=== PATIENT | female | born 1940 | race Caucasian/White ===

== ENCOUNTER 2017-05-25 20:07 | Inpatient (IN) | payer OTHER, BC ==
--- NOTE | 2017-05-25 20:13 | PDOC ---
History of Present Illness - General Chief Complaint: Injury Stated Complaint: FELL THIS AM INJURING HER WRISTS Time Seen by Provider: 05/25/17 20:12 Past History - Travel Traveled outside of the country in the last 30 days: No Close contact w/someone who was outside of country & ill: No - Past Medical History Allergies/Adverse Reactions: Allergies Allergy/AdvReac Type Severity Reaction Status Date / Time ciprofloxacin Allergy Intermediate Rash Verified 05/25/17 20:21 clarithromycin [From Biaxin] Allergy Intermediate Itching Verified 05/25/17 20: 21 Penicillins Allergy Intermediate Swelling Verified 05/25/17 20:21 Sulfa (Sulfonamide Allergy Intermediate Itching Verified 05/25/17 20:21 Antibiotics) pseudoephedrine Allergy Mild Itching Verified 05/25/17 20:21 Home Medications: Ambulatory Orders Digoxin [Lanoxin -] 0.125 mg PO DAILY 05/25/17 Duloxetine HCl 30 mg PO BID 05/25/17 Furosemide [Lasix -] 40 mg PO DAILY 05/25/17 Gabapentin 100 mg PO TID 05/25/17 Metoprolol Tartrate 100 mg PO DAILY 05/25/17 Oxybutynin Chloride [Ditropan -] 5 mg PO DAILY 05/25/17 Rosuvastatin Calcium 10 mg PO DAILY 05/25/17 Tobramycin 0.3% Ophth Soln [Tobrex *Ophthalmic Solution*] 1 - 2 drop DAILY 05/25 Valacyclovir HCl [Valtrex -] 1 gm PO TID 05/25/17 Warfarin Na [Coumadin] 5 mg PO DAILY 05/25/17 Anemia: No Asthma: No Cancer: No Cardiac Disorders: Yes CVA: No COPD: No CHF: Yes Dementia: No Diabetes: No GI Disorders: No Disorders: Yes (URINARY INCONTINENCE) HTN: Yes Hypercholesterolemia: Yes Liver Disease: No Seizures: No Thyroid Disease: No - Surgical History Abdominal Surgery: Yes (ABDOMINAL HERNIA REPAIR X 4) Appendectomy: No Cardiac Surgery: No Cholecystectomy: Yes Lung Surgery: No Neurologic Surgery: No Orthopedic Surgery: Yes (RIGHT HIP AND KNEE REPLACEMENTS/RIGHT ANKLE FX WITH HARDWARE) - Immunization History Immunization Up to Date: Yes - Suicide/Smoking/Psychosocial Hx Smoking Status: Yes Smoking History: Former smoker Have you smoked in the past 12 months: No Number of Cigarettes Smoked Daily: 0 If you are a former smoker, when did you quit?: 43 yrs ago Hx Alcohol Use: No Drug/Substance Use Hx: No Substance Use Type: None Hx Substance Use Treatment: No Review of Systems - Review of Systems Comments:: 05/26/17 03:29 Pt fell out of bed today -weak and arthritic. Constitutional: No: Symptoms Reported, See HPI, Chills, Diaphoresis, Fever, Loss of Appetite, Malaise, Night Sweats, Weakness, Weight Stable, Unintentional Wgt. Loss, Unexplained wgt Loss, Other HEENTM: Yes: Recent change in vision Respiratory: No: Symptoms reported, See HPI, Cough, Orthopnea, Shortness of Breath, SOB with Exertion, SOB at Rest, Stridor, Wheezing, Productive cough, Hemoptysis, Other Cardiac (ROS): Yes: Irregular Heart Rate ABD/GI: Yes: Poor Appetite. No: Symptoms Reported, See HPI, Abdominal Distended , Abd. Pain w/ defecation, Blood Streaked Bowels, Constipated, Diarrhea, Difficulty Swallowing, Nausea, Poor Fluid Intake, Rectal Bleeding, Vomiting, Indigestion, Abdominal cramping, Tarry Stools, Other : Yes: Urgency. 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 No: Apparent Distress, Disheveled HEENT: positive: EOMI, VIC, Normal ENT Inspection Neck: positive: Normal Thyroid, Supple Respiratory/Chest: positive: Lungs Clear, Normal Breath Sounds. negative: Respiratory Distress Cardiovascular: positive: Regular Rate, S1, S2, Irregularly Irregular Gastrointestinal/Abdominal: positive: Normal Bowel Sounds, Soft Extremity: positive: Normal Inspection, Tender, Inflammation (pt has arthritis in her wrists and hands and she is in destress with movement of wrists -but no redness and no swelling or deformity). negative: Normal Range of Motion Integumentary: positive: Normal Color, Dry, Warm Neurologic: positive: Fully Oriented, Alert, Normal Response, Motor Strength 10/04 ED Treatment Course - LABORATORY CBC & Chemistry Diagram: 05/25/17 21:10 05/25/17 23:30 Medical Decision Making - Medical Decision Making 05/25/17 21:03 BIlateral wrist XRAYS: no fracture seen 05/25/17 22:13 Patient Name: MARVIN KILLIAN THIS IS A PRELIMINARY REPORT FROM [facility] DATE OF SERVICE: 2017-05-25 20:47:18 IMAGES: 248 EXAM: CT cervical spine without contrast HISTORY: Status post fall. COMPARISON: None. FINDINGS: 1. Visualization of detail in portions of the spine is significantly limited by artifact created by large body habitus. 2. There is straightening of the normal lordotic curve of the cervical spine. The vertebral heights are maintained. There is loss of height of the C4-C5, C5-C6 and C6-C7 discs. There is multiple level degenerative facet change. Visualization of detail of the contents of the cervical canal is limited by artifact. There is no definite evidence of fracture and no evidence of subluxation. However, fractures of C6 and C7 could be missed due to artifact. THIS DOCUMENT HAS BEEN ELECTRONICALLY SIGNED Patient Name: MARVIN KILLIAN THIS IS A PRELIMINARY REPORT FROM [facility] DATE OF SERVICE: 2017-05-25 20:50:57 IMAGES: 90 EXAM: CT head without contrast HISTORY: Status post fall. Hit head. COMPARISON: None. FINDINGS: 1. There is no CT evidence of an acute intracranial process and no evidence of intracranial hemorrhage or mass effect. White matter changes most likely represent areas of chronic post ischemic demyelination/small vessel disease. 2. Ventricular size is concordant with the degree of atrophy. 3. The visualized portions of the orbits, paranasal and mastoid sinuses are unremarkable. 4. There is no evidence of fracture. 05/25/17 22:48 Pt has a UTI Also both cemistry samples sent to the lab were hemolyzed; I spoke to the biology laboratory assistant, and the K+ of 6.3 is a hemolyzed result. We will repeat it again. Pt has an elevated WBC count. 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
[2017-05-25 21:45] LABS: BASO % 2.7 % (0-2.0); EOS % 0.6 % (0-4.5); MCH 29.2 pg (25.7-33.7); MCHC 33.1 g/dl (32.0-36.0); MEAN CELL VOLUME 88.3 fl (80-96); MEAN PLT VOLUME 10.8 fl (7.5-11.1); NEUT % 79.5 % (42.8-82.8); PLATELET COUNT 227 K/MM3 (134-434); RDW 15.6 % (11.6-15.6); WHITE BLOOD COUNT 14.4 K/mm3 (4.0-10.8)
[2017-05-25 21:52] LABS: NEUT # 11.5 # (42.8-82.8)
[2017-05-25 21:53] LABS: BASO # 0.4 # (0.1-1); EOS # 0.1 #; LYMPH # 1.8 # (8-40); MONO # 0.6 #
[2017-05-25] MEDS ORDERED: ONDANSETRON 4 MG/2 ML VIAL IVPB ONE (22:09)
[2017-05-25] MEDS ORDERED: ONDANSETRON 4 MG/2 ML VIAL ONE (22:10)
[2017-05-25] MEDS ORDERED: SODIUM CHLORIDE 0.9% 500 ML INFUS.BAG IV ONE (22:21)
[2017-05-25 22:36] LABS: PH,URINE 5.5 (4.5-8); URINE BILIRUBIN Negative (NEGATIVE); URINE GLUCOSE (UA) Negative (NEGATIVE); URINE KETONE Negative (NEGATIVE); URINE NITRITE Positive (NEGATIVE); URINE PROTEIN Negative (NEGATIVE)
[2017-05-25 22:37] LABS: URINE APPEARANCE SL CLOUDY; URINE BLOOD 1+ (NEGATIVE); URINE COLOR YELLOW; URINE LEUK ESTERASE 3+ (NEGATIVE)
[2017-05-25 22:38] LABS: ALBUMIN 3.2 g/dl (3.5-5.0); ALK PHOS 101 U/L (32-92); ANION GAP 8 (8-16); BILIRUBIN,TOTAL 1.7 mg/dl (0.2-1.0); CALCIUM 8.5 mg/dl (8.4-10.2); CO2 25 mmol/L (22-28); CPK 120 IU/L (26-192); GLUCOSE,RANDOM 180 mg/dl (74-106); SGOT/AST 56 U/L (10-42); SGPT/ALT 21 U/L (10-40); TOT PROT 6.5 g/dl (6.4-8.3)
[2017-05-25] MEDS ORDERED: GENTAMICIN 80 MG PREMIXED IVPB 80 MG/100 ML BAG IVPB ONE (22:40)
[2017-05-25 22:41] LABS: INR 3.25 (0.82-1.09); PROTHROMBIN TIME (PATIENT) 35.6 SEC (10.2-13.0)
[2017-05-25 22:52] LABS: TROPONIN I (DFP) 0.03 ng/ml (0.03-0.50)
[2017-05-25 23:08] LABS: URINE BACTERIA MODERATE /hpf (NEGATIVE); URINE WBC 40-60 (0-5)
[2017-05-25 23:53] LABS: ALBUMIN 3.2 g/dl (3.5-5.0); ALK PHOS 97 U/L (32-92); ANION GAP 7 (8-16); BILIRUBIN,TOTAL 0.6 mg/dl (0.2-1.0); CALCIUM 8.2 mg/dl (8.4-10.2); CO2 26 mmol/L (22-28); CREATININE 0.8 mg/dl (0.6-1.3); GLUCOSE,RANDOM 175 mg/dl (74-106); SGOT/AST 20 U/L (10-42); SGPT/ALT 15 U/L (10-40); TOT PROT 6.4 g/dl (6.4-8.3)
[2017-05-26 02:41] VITALS: BMI 33.8
[2017-05-26] MEDS: HEPARIN NA (PORCINE) 5,000 UNITS/ML 1ML VIAL SQ SCH ×2 (06:43→18:21)
[2017-05-26] MEDS ORDERED: PT OWN MED DRAWER 7, Y5N ONE ×2 (09:32→16:08)
[2017-05-26 10:02] LABS: MCH 29.5 pg (25.7-33.7); MCHC 32.9 g/dl (32.0-36.0); MEAN CELL VOLUME 89.7 fl (80-96); PLATELET COUNT 175 K/MM3 (134-434); RDW 15.7 % (11.6-15.6)
[2017-05-26 10:50] LABS: ANION GAP 5 (8-16); CO2 30 mmol/L (22-28); CREATININE 0.8 mg/dl (0.6-1.3); GLUCOSE,RANDOM 150 mg/dl (74-106)
[2017-05-26] MEDS: ERTAPENEM SODIUM 1 GM in SODIUM CHLORIDE 50 ML IVPB SCH (12:39)
--- NOTE | 2017-05-26 13:15 | HP ---
CHIEF COMPLAINT: Fell out of bed and hurt both wrists. PCP: Dr. Bellamy HISTORY OF PRESENT ILLNESS: 77 year-old female with a PMH significant for HTN, HLD, systolic HF, pulmonary HTN, atrial fibrillation on coumadin, aortic stenosis s/p TAVR, OA, s/p bilateral knee replacements and right hip replacement, and morbid obesity. Patient presented to the ED after having fallen out of bed. She states it was a mechanical fall, she did not pass out of LOC before or after. She does not know if her legs gave way. She hit her head against a wall and she landed on both wrists. Patient has no other complaints. She denies recent illness. She denies dysuria, frequency, urgency. ER course was notable for: (1) INR 3.25 (2) All imaging negative for acute process (3) UA 40-60 WBCs Recent Travel: No PAST MEDICAL HISTORY: Hypertension Heart failure Pulmonary hypertension Atrial fibrillation Aortic stenosis Osteoarthritis Sleep apnea Fatty liver Depression Degenerative disc disease/chronic low back pain Morbid obesity PAST SURGICAL HISTORY: TAVR Cholecystectomy Partial bowel resection Umbilical hernia repair ISABELLA Bilateral knee replacement Right hip replacement ORIF right ankle Cataract surgery Social History: Smoking: former smoker Alcohol: no Drugs: no Family History: Allergies ciprofloxacin Allergy (Intermediate, Verified 05/25/17 20:21) Rash clarithromycin [From Biaxin] Allergy (Intermediate, Verified 05/25/17 20:21) Itching Penicillins Allergy (Intermediate, Verified 05/25/17 20:21) Swelling RASH AND SWELLING Sulfa (Sulfonamide Antibiotics) Allergy (Intermediate, Verified 05/25/17 20:21) Itching pseudoephedrine Allergy (Mild, Verified 05/25/17 20:21) Itching HOME MEDICATIONS: Home Medications Medication Instructions Recorded Digoxin [Lanoxin -] 0.125 mg PO DAILY 05/25/17 Duloxetine HCl 30 mg PO BID 05/25/17 Furosemide [Lasix -] 40 mg PO DAILY 05/25/17 Gabapentin 100 mg PO TID 05/25/17 Metoprolol Tartrate 100 mg PO DAILY 05/25/17 Oxybutynin Chloride [Ditropan -] 5 mg PO DAILY 05/25/17 Rosuvastatin Calcium 10 mg PO DAILY 05/25/17 Tobramycin 0.3% Ophth Soln [Tobrex 1 - 2 drop DAILY 05/25/17 *Ophthalmic Solution*] Valacyclovir HCl [Valtrex -] 1 gm PO TID 05/25/17 Warfarin Na [Coumadin] 5 mg PO DAILY 05/25/17 REVIEW OF SYSTEMS Negative ROS. PHYSICAL EXAMINATION Vital Signs Temperature 98.8 F 05/26/17 14:25 Pulse Rate 80 05/26/17 16:13 Respiratory Rate 18 05/26/17 14:25 Blood Pressure 145/80 05/26/17 14:25 O2 Sat by Pulse Oximetry (%) 96 05/26/17 14:26 GENERAL: Awake, alert, and fully oriented, in no acute distress. HEAD: Normal with no signs of trauma. EYES: Crusted lesion medial canthus right eye LUNGS: Breath sounds equal, clear to auscultation bilaterally. No wheezes, and no crackles. No accessory muscle use. HEART: Irregular, S1 and S2 ABDOMEN: Soft, nontender, not distended, normoactive bowel sounds, no guarding, no rebound, no masses. MUSCULOSKELETAL: Normal range of motion at all joints. No bony deformities or tenderness. No CVA tenderness. UPPER EXTREMITIES: 2+ pulses, warm, well-perfused. No cyanosis. No clubbing. Trace upper extremity edema. Bilateral wrist tenderness with rotation. LOWER EXTREMITIES: 2+ pulses, warm, well-perfused. No calf tenderness. Trace bilateral edema. NEUROLOGICAL: Cranial nerves II-XII intact. Normal speech. Laboratory Results - last 24 hr 05/25/17 05/25/17 05/25/17 20:36 20:36 20:36 WBC Corrected WBC (auto) RBC Hgb Hct MCV MCH MCHC RDW Plt Count MPV Neutrophils % Lymphocytes % Monocytes % Eosinophils % Basophils % Nucleated RBC % Platelet Estimate Platelet Comment PT with INR INR PTT (Actin FS) Cancelled Sodium Cancelled Potassium Cancelled Chloride Cancelled Carbon Dioxide Cancelled Anion Gap Cancelled BUN Cancelled Creatinine Cancelled Creat Clearance w eGFR Cancelled Random Glucose Cancelled Calcium Cancelled Total Bilirubin Cancelled AST Cancelled ALT Cancelled Alkaline Phosphatase Cancelled Creatine Kinase Cancelled Troponin I Cancelled Total Protein Cancelled Albumin Cancelled Urine Color Urine Appearance Urine pH Ur Specific [place] Urine Protein Urine Glucose (UA) Urine Ketones Urine Blood Urine Nitrite Urine Bilirubin Urine Urobilinogen Ur Leukocyte Esterase Urine RBC Urine WBC Ur Epithelial Cells Amorphous Urates Urine Bacteria 05/25/17 05/25/17 05/25/17 20:36 21:10 21:10 WBC 14.4 H D Corrected WBC (auto) RBC 4.97 Hgb 14.5 Hct 43.8 MCV 88.3 MCH 29.2 MCHC 33.1 RDW 15.6 Plt Count 227 D MPV 10.8 Neutrophils % 79.5 Lymphocytes % 12.7 D Monocytes % 4.5 Eosinophils % 0.6 Basophils % 2.7 H D Nucleated RBC % Platelet Estimate Platelet Comment PT with INR Cancelled INR Cancelled PTT (Actin FS) Sodium Potassium Chloride Carbon Dioxide Anion Gap BUN Creatinine Creat Clearance w eGFR Random Glucose Calcium Total Bilirubin AST ALT Alkaline Phosphatase Creatine Kinase Troponin I Total Protein Albumin Urine Color Yellow Urine Appearance Sl cloudy Urine pH 5.5 Ur Specific [place] 1.015 Urine Protein Negative Urine Glucose (UA) Negative Urine Ketones Negative Urine Blood 1+ H Urine Nitrite Positive Urine Bilirubin Negative Urine Urobilinogen 1.0 Ur Leukocyte Esterase 3+ H Urine RBC 5-10 Urine WBC 40-60 Ur Epithelial Cells Moderate Amorphous Urates Few Urine Bacteria Moderate 05/25/17 05/25/17 05/25/17 22:14 22:14 22:14 WBC Cancelled Corrected WBC (auto) Cancelled RBC Cancelled Hgb Cancelled Hct Cancelled MCV Cancelled MCH Cancelled MCHC Cancelled RDW Cancelled Plt Count Cancelled MPV Cancelled Neutrophils % Cancelled Lymphocytes % Cancelled Monocytes % Cancelled Eosinophils % Cancelled Basophils % Cancelled Nucleated RBC % Cancelled Platelet Estimate Cancelled Platelet Comment Cancelled PT with INR 35.6 H INR 3.25 H D PTT (Actin FS) 41.0 H Sodium 135 L Potassium 6.3 H* D Chloride 102 Carbon Dioxide 25 Anion Gap 8 BUN 22 H D Creatinine 1.0 Creat Clearance w eGFR 53.62 Random Glucose 180 H D Calcium 8.5 Total Bilirubin 1.7 H D AST 56 H D ALT 21 Alkaline Phosphatase 101 H Creatine Kinase 120 Troponin I 0.03 Total Protein 6.5 Albumin 3.2 L Urine Color Urine Appearance Urine pH Ur Specific [place] Urine Protein Urine Glucose (UA) Urine Ketones Urine Blood Urine Nitrite Urine Bilirubin Urine Urobilinogen Ur Leukocyte Esterase Urine RBC Urine WBC Ur Epithelial Cells Amorphous Urates Urine Bacteria 05/25/17 05/26/17 05/26/17 23:30 06:00 06:00 WBC 10.0 D Corrected WBC (auto) RBC 4.08 Hgb 12.1 D Hct 36.6 D MCV 89.7 MCH 29.5 MCHC 32.9 RDW 15.7 H Plt Count 175 D MPV 10.0 Neutrophils % Lymphocytes % Monocytes % Eosinophils % Basophils % Nucleated RBC % Platelet Estimate Platelet Comment PT with INR INR PTT (Actin FS) Sodium 137 Cancelled Potassium 4.0 D Cancelled Chloride 104 Cancelled Carbon Dioxide 26 Cancelled Anion Gap 7 L Cancelled BUN 21 H Cancelled Creatinine 0.8 Cancelled Creat Clearance w eGFR > 60 Random Glucose 175 H Cancelled Calcium 8.2 L Cancelled Total Bilirubin 0.6 D AST 20 D ALT 15 D Alkaline Phosphatase 97 H Creatine Kinase Troponin I Total Protein 6.4 Albumin 3.2 L Urine Color Urine Appearance Urine pH Ur Specific [place] Urine Protein Urine Glucose (UA) Urine Ketones Urine Blood Urine Nitrite Urine Bilirubin Urine Urobilinogen Ur Leukocyte Esterase Urine RBC Urine WBC Ur Epithelial Cells Amorphous Urates Urine Bacteria 05/26/17 10:25 WBC Corrected WBC (auto) RBC Hgb Hct MCV MCH MCHC RDW Plt Count MPV Neutrophils % Lymphocytes % Monocytes % Eosinophils % Basophils % Nucleated RBC % Platelet Estimate Platelet Comment PT with INR INR PTT (Actin FS) Sodium 137 Potassium 3.8 Chloride 102 Carbon Dioxide 30 H Anion Gap 5 L BUN 19 H Creatinine 0.8 Creat Clearance w eGFR Random Glucose 150 H Calcium 8.0 L Total Bilirubin AST ALT Alkaline Phosphatase Creatine Kinase Troponin I Total Protein Albumin Urine Color Urine Appearance Urine pH Ur Specific [place] Urine Protein Urine Glucose (UA) Urine Ketones Urine Blood Urine Nitrite Urine Bilirubin Urine Urobilinogen Ur Leukocyte Esterase Urine RBC Urine WBC Ur Epithelial Cells Amorphous Urates Urine Bacteria Current Medications Generic Name Dose Route Start Last Admin Trade Name Vinny PRN Reason Stop Dose Admin Digoxin 0.125 mg 05/26/17 15:00 05/26/17 16:13 Lanoxin - PO 0.125 mg DAILY JUWAN Administration Duloxetine HCl 30 mg 05/26/17 22:00 Cymbalta - PO BID JUWAN Furosemide 40 mg 05/26/17 15:00 05/26/17 16:13 Lasix - PO 40 mg DAILY JUWAN Administration Gabapentin 100 mg 05/26/17 15:00 05/26/17 16:14 Neurontin - PO 100 mg TID JUWAN Administration Ertapenem 1 gm/ Sodium 50 mls @ 50 mls/hr 05/26/17 12:00 05/26/17 12:39 Chloride IVPB 50 mls/hr DAILY JUWAN Administration Protocol Metoprolol Tartrate 100 mg 05/26/17 17:15 05/26/17 17:37 Lopressor - PO 100 mg DAILY JUWAN Administration Oxybutynin Chloride 5 mg 05/27/17 10:00 Ditropan - PO DAILY JUWAN Rosuvastatin Calcium 10 mg 05/27/17 10:00 Crestor - PO DAILY JUWAN Tobramycin Sulfate 1 drop 05/27/17 10:00 Tobrex Ophthalmic Solution - OU DAILY JUWAN Valacyclovir HCl 1,000 mg 05/26/17 15:00 05/26/17 16:14 Valtrex - PO 1,000 mg TID JUWAN Administration ASSESSMENT/PLAN: 77 year-old female with a PMH significant for HTN, HF, pulmonary HTN, atrial fibrillation on coumadin, aortic stenosis s/p TAVR, OA, s/p bilateral knee replacements and right hip replacement, and morbid obesity. Mechanical fall from bed to floor --negative imaging --soft tissue wrist injuries Urinary tract infection --pyuria; afebrile, +leukocytosis --h/o E.coli ESBL UTI 11/2015 --per ID, start ertapenem Herpes zoster --being treated for shingles with right eye, right ear distribution --continue valacyclovir TID Systolic heart failure Pulmonary hypertension Aortic stenosis s/p TAVR --Echo 11/22/15: EF 20-25%; normal RV; moderate LAE; 1+ MR --continue home dose PO Lasix Atrial fibrillation --rate well-controlled in 80s, continue metoprolol and digoxin; check dig level --INR supratherapeutic on admission; hold coumadin; recheck INR in am Hypertension --BP well-controlled --contiue metoprolol Hyperlipidemia --continue statin DVT prophylaxis: on coumadin, INR supratherapeutic Physical therapy evaluation. Dispo: continues to require inpatient care. Full Code. Visit type - Emergency Visit Emergency Visit: Yes ED Registration Date: 05/25/17 Care time: The patient presented to the Emergency Department on the above date and was hospitalized for further evaluation of their emergent condition. - New Patient This patient is new to me today: Yes Date on this admission: 05/26/17 - Critical Care Critical Care patient: No
--- NOTE | 2017-05-26 14:32 | PN ---
Progress Note (short form) - Note Progress Note: ID consult dictated imp/reccd 77 year old female admitted s/p fall she has a pmh of TAVR in 2014 for , OA with bilateral knee replacements and right hip replacement uses a walker at home fell trying to get from bed to walker no LOC quite sedentary c/o generalized weakness no fevers or chills history of ecoli esbl uti in 2016 treated with ertapenem on admission noted to have wbc of 14.6 and pyuria given leukocytosis and generalized weakness with fall will treat for uti with ertapenem contact isolation multiple antibiotic allergies s/p fall d/w hospitalist Problem List - Problems (1) Fall Code(s): W19.XXXA - UNSPECIFIED FALL, INITIAL ENCOUNTER (2) UTI (urinary tract infection) Code(s): N39.0 - URINARY TRACT INFECTION, SITE NOT SPECIFIED (3) Allergy to multiple antibiotics Code(s): Z88.1 - ALLERGY STATUS TO OTHER ANTIBIOTIC AGENTS STATUS (4) History of ESBL E. coli infection Code(s): Z86.19 - PERSONAL HISTORY OF OTHER INFECTIOUS AND PARASITIC DISEASES
[2017-05-26] MEDS ORDERED: PATIENT'S OWN MEDICATION (NON-FORMULARY) (Metoprolol Tartrate [Metoprolol Tartrate] 100 MG PO SCH (15:00)
--- NOTE | 2017-05-26 15:11 | CONS ---
DATE OF CONSULTATION: REQUESTING PHYSICIAN: Hospitalist service HISTORY: This is a 77-year-old woman who was admitted to [facility] after she had a fall at home. She has a past medical history of a TAVR in 2014 for aortic stenosis, history of osteoarthritis. She is quite sedentary and uses a walker for ambulation. She was trying to get from her bed to the walker she reports, and she sustained a fall while doing this. She denies any loss of consciousness. She reports that she has been feeling quite weak and arthritic lately. She denies any fevers or chills. No nausea, vomiting, diarrhea, or dysuria. Upon arrival in the ER, she had multiple x-rays especially of her hands as she stated her wrists were painful. She was noted as well to have a white count of 14.4 and pyuria and was given a dose of gentamicin as she has multiple antibiotic allergies. I am asked to see her for further recommendations. She is current resting comfortably out of bed in a chair. PAST MEDICAL HISTORY: Notable for history of coronary artery disease, CHF, urinary incontinence, hypertension, hypercholesterolemia, aortic stenosis. PAST SURGICAL HISTORY: Notable for TAVR in 2014. She has had abdominal hernia repair x4. Cholecystectomy. She has had a hysterectomy. Bilateral total knee replacements. Right hip replacement. Right ankle fracture. SOCIAL HISTORY: She is a former smoker. Quit 43 years ago. She is followed by as outlined above. She lives at home. She has an aide, and family members are actively involved in her care. ALLERGIES: She is allergic to multiple medications including CIPROFLOXACIN, CLARITHROMYCIN, PENICILLIN, SULFA, and SUDAFED. Last admission in 2016 she tolerated both ceftriaxone and ertapenem. She has a history of an Escherichia coli ESBL UTI during that admission. FAMILY HISTORY: Notable for [place] in her mother and brother. REVIEW OF SYSTEMS: As per HPI. She complains of arthritic pain. Her sister reports she is quite sedentary, and she has been very weak. PHYSICAL EXAMINATION: Vital Signs: Her temperature is 98.8, pulse of 99, blood pressure 145/80, respiratory rate 18. She is saturating 96% on 2 L. She weighs 216 pounds. HEENT: She is normocephalic. Her eyes are anicteric. Neck: Supple. Lungs: Clear to auscultation. Heart: Regular rate and rhythm. Abdomen: Soft and nontender. She has no CVA or flank tenderness. Extremities: Trace pretibial edema. She has bilateral well-healed total knee replacement scars. LABORATORY DATA: Her labs are notable for an admission white count of 14.4, this morning is 10,000, hemoglobin 12.1, platelets 175. BUN 21 and creatinine 0.8 on admission. This morning BUN 19 and creatinine 0.8. LFTs on admission were notable for a total bilirubin 1.7, alkaline phosphatase 101, which on repeat were improved. Urinalysis has 3+ leukocyte esterase with 40-60 white cells. Cultures have been sent and are pending. In summary, this is a 77-year-old woman admitted status post fall with generalized weakness, leukocytosis, and pyuria. Would treat for UTI with ertapenem at this time given her prior history of Escherichia coli ESBL UTI as well as antibiotic allergies. I would maintain her on contact isolation. Given her multiple antibiotic allergies, of note, she tolerates cephalosporins and Carbapenems, so her current ertapenem should be appropriate until culture results are back. The case was discussed with the hospitalist. BATSHEVA EWING M.D. [id number]
[2017-05-26] MEDS ORDERED: SODIUM CHLORIDE 1,000 ML IV SCH (15:30)
[2017-05-26] MEDS ORDERED: valACYclovir HCL 500 MG TABLET (FP) ONE ×2 (16:08→21:40)
[2017-05-26] MEDS: DIGOXIN 0.125 MG TABLET (FP) PO SCH (16:13)
[2017-05-26] MEDS: FUROSEMIDE 40 MG TABLET (FP) PO SCH (16:13)
[2017-05-26] MEDS: valACYclovir HCL 1000 MG TABLET PO SCH ×2 (16:14→21:46)
[2017-05-26] MEDS: GABAPENTIN 100 MG CAPSULE (FP) PO SCH ×2 (16:14→21:45)
[2017-05-26] MEDS: METOPROLOL TARTRATE 50 MG TABLET (FP) PO SCH (17:37)
[2017-05-26] MEDS: DULoxetine HCL 30 MG CAPSULE.DR (FP) PO SCH (21:45)
[2017-05-27] MEDS ORDERED: valACYclovir HCL 500 MG TABLET (FP) ONE (06:19)
[2017-05-27] MEDS: GABAPENTIN 100 MG CAPSULE (FP) PO SCH ×3 (06:27→21:31)
[2017-05-27] MEDS: valACYclovir HCL 1000 MG TABLET PO SCH (06:27)
[2017-05-27 08:32] LABS: INR 1.63 (0.82-1.09); PROTHROMBIN TIME (PATIENT) 18.1 SEC (10.2-13.0)
[2017-05-27 08:49] LABS: MCH 30.1 pg (25.7-33.7); MCHC 33.7 g/dl (32.0-36.0); MEAN CELL VOLUME 89.3 fl (80-96); MEAN PLT VOLUME 10.3 fl (7.5-11.1); RDW 15.9 % (11.6-15.6)
--- NOTE | 2017-05-27 08:54 | PN ---
Physical Exam: SUBJECTIVE: Patient seen and examined, sitting in bedside chair, denies any tactile fevers, reports generalized fatigue. OBJECTIVE: patient is a obese, 77 year-old female with a PMH significant for HTN, HLD, systolic HF, pulmonary HTN, atrial fibrillation (coumadin), aortic stenosis s/p TAVR, and OA. Patient was admitted from the emergency department s /p mechanical fall and UTI Vital Signs Period Temp Pulse Resp BP Sys/Cabral Pulse Ox Last 24 Hr 97.6 F-98.8 F 80-99 18-20 136-153/56-94 95-100 GENERAL: The patient is awake, alert, and fully oriented, in no acute distress. HEAD: dried vesicles to medical canthus of right eye, Normal with no signs of trauma. EYES: PERRL, extraocular movements intact, sclera anicteric, conjunctiva clear. No ptosis. ENT: Ears normal, nares patent, oropharynx clear without exudates, moist mucous membranes. NECK: Trachea midline, full range of motion, supple. LUNGS: Breath sounds equal, clear to auscultation bilaterally, no wheezes, no crackles, no accessory muscle use. HEART: irregular rate and rhythm, S1, S2, 2/6 sysolic murmur, no rub or gallop. ABDOMEN: Soft, nontender, nondistended, normoactive bowel sounds, no guarding, no rebound, no hepatosplenomegaly, no masses. EXTREMITIES: 2+ pulses, warm, well-perfused, +1 trace billateral lower extremity edema, with venous stasis changes bilaterally. NEUROLOGICAL: Cranial nerves II through XII grossly intact. Normal speech, gait not observed. PSYCH: Normal mood, normal affect. SKIN: Warm, dry, normal turgor, no rashes or lesions noted Laboratory Results - last 24 hr CBC WBC 14.3 K/mm3 (4.0-10.8) H D 05/27/17 07:00 Corrected WBC (auto) Cancelled 05/25/17 22:14 RBC 4.07 M/mm3 (3.60-5.2) 05/27/17 07:00 Hgb 12.2 GM/dl (10.7-15.3) 05/27/17 07:00 Hct 36.3 % (32.4-45.2) 05/27/17 07:00 MCV 89.3 fl (80-96) 05/27/17 07:00 MCH 30.1 pg (25.7-33.7) 05/27/17 07:00 MCHC 33.7 g/dl (32.0-36.0) 05/27/17 07:00 RDW 15.9 % (11.6-15.6) H 05/27/17 07:00 Plt Count 175 K/MM3 (134-434) D 05/26/17 06:00 MPV 10.3 fl (7.5-11.1) 05/27/17 07:00 Neutrophils % No Result Required. 05/27/17 07:00 Lymphocytes % No Result Required. 05/27/17 07:00 Monocytes % 4.5 % (3.8-10.2) 05/25/17 21:10 Eosinophils % 0.6 % (0-4.5) 05/25/17 21:10 Basophils % 2.7 % (0-2.0) H D 05/25/17 21:10 Nucleated RBC % Cancelled 05/25/17 22:14 Platelet Estimate Cancelled 05/25/17 22:14 Platelet Comment Cancelled 05/25/17 22:14 CMP Sodium 137 mmol/L (136-145) 05/27/17 07:00 Potassium 4.2 mmol/L (3.5-5.1) 05/27/17 07:00 Chloride 102 mmol/L (98-107) 05/27/17 07:00 Carbon Dioxide 30 mmol/L (22-28) H 05/27/17 07:00 Anion Gap 5 (8-16) L 05/27/17 07:00 BUN 16 mg/dl (7-18) 05/27/17 07:00 Creatinine 0.8 mg/dl (0.6-1.3) 05/27/17 07:00 Creat Clearance w eGFR > 60 (>60) 05/27/17 07:00 Random Glucose 163 mg/dl (74-106) H 05/27/17 07:00 Calcium 8.1 mg/dl (8.4-10.2) L 05/27/17 07:00 Magnesium 1.9 mg/dL (1.8-2.4) D 05/27/17 07:00 Total Bilirubin 0.9 mg/dl (0.2-1.0) D 05/27/17 07:00 AST 18 U/L (10-42) 05/27/17 07:00 ALT 19 U/L (10-40) D 05/27/17 07:00 Alkaline Phosphatase 85 U/L (32-92) 05/27/17 07:00 Creatine Kinase 120 IU/L (26-192) 05/25/17 22:14 Troponin I 0.03 ng/ml (0.03-0.50) 05/25/17 22:14 Total Protein 5.7 g/dl (6.4-8.3) L 05/27/17 07:00 Albumin 2.7 g/dl (3.5-5.0) L 05/27/17 07:00 Active Medications Generic Name Dose Route Start Last Admin Trade Name Freq PRN Reason Stop Dose Admin Digoxin 0.125 mg 05/26/17 15:00 05/26/17 16:13 Lanoxin - PO 0.125 mg DAILY JUWAN Administration Duloxetine HCl 30 mg 05/26/17 22:00 05/26/17 21:45 Cymbalta - PO 30 mg BID JUWAN Administration Furosemide 40 mg 05/26/17 15:00 05/26/17 16:13 Lasix - PO 40 mg DAILY JUWAN Administration Gabapentin 100 mg 05/26/17 15:00 05/27/17 06:27 Neurontin - PO 100 mg TID JUWAN Administration Ertapenem 1 gm/ Sodium 50 mls @ 50 mls/hr 05/26/17 12:00 05/26/17 12:39 Chloride IVPB 50 mls/hr DAILY JUWAN Administration Protocol Metoprolol Tartrate 100 mg 05/26/17 17:15 05/26/17 17:37 Lopressor - PO 100 mg DAILY JUWAN Administration Oxybutynin Chloride 5 mg 05/27/17 10:00 Ditropan - PO DAILY JUWAN Rosuvastatin Calcium 10 mg 05/27/17 10:00 Crestor - PO DAILY JUWAN Tobramycin Sulfate 1 drop 05/27/17 10:00 Tobrex Ophthalmic Solution - OU DAILY JUWAN Valacyclovir HCl 1,000 mg 05/27/17 14:00 Valtrex - PO TID JUWAN Microbiology 05/25/17 20:55 Urine - Urine - Catheterized Urine Culture - Preliminary Lactose Fermenting Neg Bacilli 05/26/17 05:00 Blood - Peripheral Venous Blood Culture - Preliminary NO GROWTH OBTAINED AFTER 24 HOURS, INCUBATION TO CONTINUE FOR 4 DAYS. 05/26/17 05:00 Blood - Peripheral Venous Blood Culture - Preliminary NO GROWTH OBTAINED AFTER 24 HOURS, INCUBATION TO CONTINUE FOR 4 DAYS. IMAGING chest xray: no acute pathology head ct 05/25: moderate carebral atophy with periventricular changes left wrist: no acute pathology right wrist:no acute pathology cervical spine ct: wedging, no gross fracture ASSESSMENT/PLAN: 1) MS: Mechanical fall from bed to floor - xrays reviwed no acute pathology - repeat head ct today, no acute pathology. 2) Urinary tract infection - pt is afebrile, leukocytosis noted, urine culture prelim + lactose fermenting neg bacili, continue ertapnem, hx of ecoli esbl in 11/15 - Dr Davis (ID) consulted and following 3) ID herpes zoster - eing treated for shingles with right eye, right ear distribution, continue valacyclovir TID 4) cardiovascular Systolic heart failure Pulmonary hypertension Aortic stenosis s/p TAVR - Echo 11/22/15: EF 20-25%; normal RV; moderate LAE; 1+ MR - patient is euvolemic, continue home dose PO Lasix Atrial fibrillation -rate well-controlled in 80s, continue metoprolol and digoxin; - INR supratherapeutic, restart home dose coumadin 6mg for 3 days and 5mg for 4 days as per cardiology (Dr Katz) Hypertension - BP well-controlled, continue home dose metoprolol Hyperlipidemia -continue statin f/e/n - low sodium/fat diet DVT prophylaxis: on coumadin, INR supratherapeutic Physical therapy evaluation. Dispo: continues to require inpatient care. Full Code. Visit type - Emergency Visit Emergency Visit: Yes ED Registration Date: 05/25/17 Care time: The patient presented to the Emergency Department on the above date and was hospitalized for further evaluation of their emergent condition. - New Patient This patient is new to me today: Yes Date on this admission: 05/27/17 - Critical Care Critical Care patient: No - Discharge Referral Referred to [facility] No
[2017-05-27 09:08] LABS: ALBUMIN 2.7 g/dl (3.5-5.0); BILIRUBIN,TOTAL 0.9 mg/dl (0.2-1.0); CREATININE 0.8 mg/dl (0.6-1.3); MAGNESIUM 1.9 mg/dL (1.8-2.4); SGOT/AST 18 U/L (10-42); SGPT/ALT 19 U/L (10-40); TOT PROT 5.7 g/dl (6.4-8.3)
[2017-05-27] MEDS ORDERED: PT OWN MED DRAWER 7, Y5N ONE (09:16)
[2017-05-27 09:20] LABS: ALK PHOS 85 U/L (32-92); ANION GAP 5 (8-16); CALCIUM 8.1 mg/dl (8.4-10.2); CO2 30 mmol/L (22-28); GLUCOSE,RANDOM 163 mg/dl (74-106)
[2017-05-27] MEDS: DIGOXIN 0.125 MG TABLET (FP) PO SCH (09:21)
[2017-05-27] MEDS: METOPROLOL TARTRATE 50 MG TABLET (FP) PO SCH (09:21)
[2017-05-27] MEDS: ROSUVASTATIN CA 10 MG TABLET (FP) PO SCH (09:22)
[2017-05-27] MEDS: FUROSEMIDE 40 MG TABLET (FP) PO SCH (09:22)
[2017-05-27] MEDS: DULoxetine HCL 30 MG CAPSULE.DR (FP) PO SCH ×2 (09:22→21:31)
[2017-05-27] MEDS: OXYBUTYNIN CHLORIDE 5 MG TABLET PO SCH (09:22)
[2017-05-27 09:23] LABS: WHITE BLOOD COUNT 14.3 K/mm3 (4.0-10.8)
[2017-05-27] MEDS: TOBRAMYCIN 0.3% OPHTH SOLN 5 ML BOTTLE OU SCH (09:23)
[2017-05-27] MEDS: ERTAPENEM SODIUM 1 GM in SODIUM CHLORIDE 50 ML IVPB SCH (09:23)
[2017-05-27 12:36] LABS: PLATELET COUNT 178 K/MM3 (134-434)
[2017-05-27 12:38] LABS: MYELOCYTE 1 % (0-2); PLATELET ESTIMATE ADEQUATE; REACTIVE LYMPHOCYTES 1 % (0-80)
[2017-05-27] MEDS ORDERED: ACETAMINOPHEN 325 MG TABLET (FP) PO PRN (13:06)
--- NOTE | 2017-05-27 13:11 | EKG ---
Test Reason : Blood Pressure : / mmHG Vent. Rate : 098 BPM Atrial Rate : 090 BPM P-R Int : 000 ms QRS Dur : 134 ms QT Int : 392 ms P-R-T Axes : 000 001 189 degrees QTc Int : 500 ms ATRIAL FIBRILLATION NON-SPECIFIC INTRA-VENTRICULAR CONDUCTION BLOCK T WAVE ABNORMALITY, CONSIDER INFEROLATERAL ISCHEMIA ABNORMAL ECG WHEN COMPARED WITH ECG OF 29-NOV-2015 14:53, ATRIAL FIBRILLATION HAS REPLACED SINUS RHYTHM BORDERLINE CRITERIA FOR LATERAL INFARCT ARE NO LONGER PRESENT T WAVE INVERSION MORE EVIDENT IN LATERAL LEADS Confirmed by MD Loki, Wilbert ([id number]) on 05/27/2017 1:11:31 PM Referred By: MD CEE Confirmed By:Wilbert Manjarrez MD
[2017-05-27] MEDS ORDERED: valACYclovir HCL 500 MG TABLET (FP) PO SCH (14:00)
[2017-05-27] MEDS ORDERED: WARFARIN NA 3 MG TABLET PO ONE (18:00)
[2017-05-28] MEDS: GABAPENTIN 100 MG CAPSULE (FP) PO SCH ×2 (06:27→14:26)
[2017-05-28 08:30] LABS: INR 1.32 (0.82-1.09); PROTHROMBIN TIME (PATIENT) 14.7 SEC (10.2-13.0)
[2017-05-28 08:36] LABS: ANION GAP 8 (8-16); CALCIUM 8.4 mg/dl (8.4-10.2); CO2 29 mmol/L (22-28); CREATININE 0.8 mg/dl (0.6-1.3); GLUCOSE,RANDOM 152 mg/dl (74-106); PHOSPHOROUS 3.6 mg/dl (2.5-4.6)
--- NOTE | 2017-05-28 08:38 | PN ---
Physical Exam: SUBJECTIVE: Patient seen and examined OBJECTIVE: Vital Signs Period Temp Pulse Resp BP Sys/Cabral Pulse Ox Last 24 Hr 97.5 F-98.4 F 80-98 18-19 138-152/77-88 94-97 GENERAL: The patient is awake, alert, and fully oriented, in no acute distress. HEAD: Normal with no signs of trauma. EYES: PERRL, extraocular movements intact, sclera anicteric, conjunctiva clear. No ptosis. ENT: Ears normal, nares patent, oropharynx clear without exudates, moist mucous membranes. NECK: Trachea midline, full range of motion, supple. LUNGS: Breath sounds equal, clear to auscultation bilaterally, no wheezes, no crackles, no accessory muscle use. HEART: Regular rate and rhythm, S1, S2 without murmur, rub or gallop. ABDOMEN: Soft, nontender, nondistended, normoactive bowel sounds, no guarding, no rebound, no hepatosplenomegaly, no masses. EXTREMITIES: 2+ pulses, warm, well-perfused, no edema. NEUROLOGICAL: Cranial nerves II through XII grossly intact. Normal speech, gait not observed. PSYCH: Normal mood, normal affect. SKIN: Warm, dry, normal turgor, no rashes or lesions noted Laboratory Results - last 24 hr 05/27/17 05/27/17 05/27/17 07:00 07:00 07:00 WBC 14.3 H D RBC 4.07 Hgb 12.2 Hct 36.3 MCV 89.3 MCH 30.1 MCHC 33.7 RDW 15.9 H Plt Count 178 MPV 10.3 Neutrophils % No Result Required. Neutrophils % (Manual) 68.0 Band Neutrophils % 7.0 Lymphocytes % No Result Required. Lymphocytes % (Manual) 14.0 Monocytes % (Manual) 6 Eosinophils % (Manual) 3.0 Myelocytes % (Man) 1 Platelet Estimate Adequate PT with INR 18.1 H INR 1.63 H D Sodium 137 Potassium 4.2 Chloride 102 Carbon Dioxide 30 H Anion Gap 5 L BUN 16 Creatinine 0.8 Creat Clearance w eGFR > 60 Random Glucose 163 H Calcium 8.1 L Phosphorus Magnesium 1.9 D Total Bilirubin 0.9 D AST 18 ALT 19 D Alkaline Phosphatase 85 Total Protein 5.7 L Albumin 2.7 L Digoxin 05/27/17 05/28/17 05/28/17 07:00 08:00 08:00 WBC RBC Hgb Hct MCV MCH MCHC RDW Plt Count MPV Neutrophils % Neutrophils % (Manual) Band Neutrophils % Lymphocytes % Lymphocytes % (Manual) Monocytes % (Manual) Eosinophils % (Manual) Myelocytes % (Man) Platelet Estimate PT with INR 14.7 H INR 1.32 H Sodium 135 L Potassium 3.8 Chloride 98 Carbon Dioxide 29 H Anion Gap 8 BUN 17 Creatinine 0.8 Creat Clearance w eGFR Random Glucose 152 H Calcium 8.4 Phosphorus 3.6 Magnesium Total Bilirubin AST ALT Alkaline Phosphatase Total Protein Albumin Digoxin 0.7536 L Active Medications Generic Name Dose Route Start Last Admin Trade Name Freq PRN Reason Stop Dose Admin Acetaminophen 650 mg 05/27/17 13:06 Tylenol - PO Q4H PRN FEVER OR PAIN Digoxin 0.125 mg 05/26/17 15:00 05/27/17 09:21 Lanoxin - PO 0.125 mg DAILY JUWAN Administration Duloxetine HCl 30 mg 05/26/17 22:00 05/27/17 21:31 Cymbalta - PO 30 mg BID JUWAN Administration Furosemide 40 mg 05/26/17 15:00 05/27/17 09:22 Lasix - PO 40 mg DAILY JUWAN Administration Gabapentin 100 mg 05/26/17 15:00 05/28/17 06:27 Neurontin - PO 100 mg TID JUWAN Administration Ertapenem 1 gm/ Sodium 50 mls @ 50 mls/hr 05/26/17 12:00 05/27/17 09:23 Chloride IVPB 50 mls/hr DAILY JUWAN Administration Protocol Metoprolol Tartrate 100 mg 05/26/17 17:15 05/27/17 09:21 Lopressor - PO 100 mg DAILY JUWAN Administration Oxybutynin Chloride 5 mg 05/27/17 10:00 05/27/17 09:22 Ditropan - PO 5 mg DAILY JUWAN Administration Rosuvastatin Calcium 10 mg 05/27/17 10:00 05/27/17 09:22 Crestor - PO 10 mg DAILY JUWAN Administration Tobramycin Sulfate 1 drop 05/27/17 10:00 05/27/17 09:23 Tobrex Ophthalmic Solution - OU 1 drop DAILY JUWAN Administration ASSESSMENT/PLAN:
[2017-05-28 08:42] LABS: BASO % 0.5 % (0-2.0); EOS % 2.8 % (0-4.5); MCH 30.5 pg (25.7-33.7); MCHC 34.2 g/dl (32.0-36.0); MEAN CELL VOLUME 89.2 fl (80-96); MEAN PLT VOLUME 9.9 fl (7.5-11.1); NEUT % 72.4 % (42.8-82.8); PLATELET COUNT 140 K/MM3 (134-434); RDW 15.1 % (11.6-15.6); WHITE BLOOD COUNT 6.9 K/mm3 (4.0-10.8)
[2017-05-28] MEDS ORDERED: PT OWN MED DRAWER 7, Y5N ONE (09:23)
[2017-05-28 09:28] LABS: MAGNESIUM 1.9 mg/dL (1.8-2.4)
--- NOTE | 2017-05-28 09:29 | PN ---
Progress Note, Physician History of Present Illness: OOB in chair C/O urinary frequency/ urgency No c/o dysuria/ hematuria Afebrile WBC improved BC (-) Urine c/s LF - Current Medication List Current Medications: Active Medications Acetaminophen (Tylenol -) 650 mg PO Q4H PRN PRN Reason: FEVER OR PAIN Digoxin (Lanoxin -) 0.125 mg PO DAILY [facility] Last Admin: 05/27/17 09:21 Dose: 0.125 mg Duloxetine HCl (Cymbalta -) 30 mg PO BID [facility] Last Admin: 05/27/17 21:31 Dose: 30 mg Furosemide (Lasix -) 40 mg PO DAILY [facility] Last Admin: 05/27/17 09:22 Dose: 40 mg Gabapentin (Neurontin -) 100 mg PO TID [facility] Last Admin: 05/28/17 06:27 Dose: 100 mg Ertapenem 1 gm/ Sodium (Chloride) 50 mls @ 50 mls/hr IVPB DAILY [facility] PRN Reason: Protocol Last Admin: 05/27/17 09:23 Dose: 50 mls/hr Metoprolol Tartrate (Lopressor -) 100 mg PO DAILY [facility] Last Admin: 05/27/17 09:21 Dose: 100 mg Oxybutynin Chloride (Ditropan -) 5 mg PO DAILY [facility] Last Admin: 05/27/17 09:22 Dose: 5 mg Rosuvastatin Calcium (Crestor -) 10 mg PO DAILY [facility] Last Admin: 05/27/17 09:22 Dose: 10 mg Tobramycin Sulfate (Tobrex Ophthalmic Solution -) 1 drop OU DAILY [facility] Last Admin: 05/27/17 09:23 Dose: 1 drop - Objective Vital Signs: Vital Signs Temperature 97.8 F 05/28/17 06:00 Pulse Rate 98 H 05/28/17 06:00 Respiratory Rate 18 05/28/17 07:50 Blood Pressure 152/88 05/28/17 06:00 O2 Sat by Pulse Oximetry (%) 96 05/28/17 07:50 Constitutional: Yes: No Distress, Obese Cardiovascular: Yes: Regular Rate and Rhythm, S1, S2 Respiratory: Yes: CTA Bilaterally Gastrointestinal: Yes: Normal Bowel Sounds, Soft, Abdomen, Obese, Other (no suprapubic tenderness). No: Tenderness Labs: CBC, BMP 05/28/17 08:00 05/28/17 08:00 INR, PTT INR 1.32 (0.82-1.09) H 05/28/17 08:00 Assessment/Plan Recurrent UTI Hx ESBL UTI Leukocytosis- resolved S/P TAVR, joint replacements S/P Fall Await urine c/s Continue ertapenem
[2017-05-28] MEDS: ERTAPENEM SODIUM 1 GM in SODIUM CHLORIDE 50 ML IVPB SCH (09:36)
[2017-05-28] MEDS: DULoxetine HCL 30 MG CAPSULE.DR (FP) PO SCH (09:36)
[2017-05-28] MEDS: FUROSEMIDE 40 MG TABLET (FP) PO SCH (09:37)
[2017-05-28] MEDS: ROSUVASTATIN CA 10 MG TABLET (FP) PO SCH (09:37)
[2017-05-28] MEDS: METOPROLOL TARTRATE 50 MG TABLET (FP) PO SCH (09:37)
[2017-05-28] MEDS: DIGOXIN 0.125 MG TABLET (FP) PO SCH (09:37)
[2017-05-28] MEDS: OXYBUTYNIN CHLORIDE 5 MG TABLET PO SCH (09:37)
[2017-05-28] MEDS: TOBRAMYCIN 0.3% OPHTH SOLN 5 ML BOTTLE OU SCH (09:38)
--- NOTE | 2017-05-28 12:05 | DS ---
Physical Exam: SUBJECTIVE: Patient seen and examined, reports feeling better, denies any tactile fever, requesting discharge to [facility] OBJECTIVE:77 year-old female with a PMH significant for HTN, HLD, systolic HF, pulmonary HTN, atrial fibrillation on coumadin, aortic stenosis s/p TAVR, OA, s/ p bilateral knee replacements and right hip replacement, and morbid obesity. Patient presented to the ED after having fallen out of bed. She states it was a mechanical fall, she did not pass out of LOC before or after. She does not know if her legs gave way. She hit her head against a wall and she landed on both wrists. Patient has no other complaints. She denies recent illness. She denies dysuria, frequency, urgency. ER course was notable for: (1) INR 3.25 (2) All imaging negative for acute process (3) UA 40-60 WBCs Vital Signs Period Temp Pulse Resp BP Sys/Cabral Pulse Ox Last 24 Hr 97.5 F-98.4 F 74-98 18-19 138-152/77-88 94-97 PHYSICAL EXAM GENERAL: The patient is awake, alert, and fully oriented, in no acute distress. HEAD: dried vesicles to medical canthus of right eye, Normal with no signs of trauma. EYES: PERRL, extraocular movements intact, sclera anicteric, conjunctiva clear. No ptosis. ENT: Ears normal, nares patent, oropharynx clear without exudates, moist mucous membranes. NECK: Trachea midline, full range of motion, supple. LUNGS: Breath sounds equal, clear to auscultation bilaterally, no wheezes, no crackles, no accessory muscle use. HEART: irregular rate and rhythm, S1, S2, 2/6 sysolic murmur, no rub or gallop. ABDOMEN: Soft, nontender, nondistended, normoactive bowel sounds, no guarding, no rebound, no hepatosplenomegaly, no masses. EXTREMITIES: 2+ pulses, warm, well-perfused, +1 trace billateral lower extremity edema, with venous stasis changes bilaterally. NEUROLOGICAL: Cranial nerves II through XII grossly intact. Normal speech, gait not observed. PSYCH: Normal mood, normal affect. SKIN: Warm, dry, normal turgor, no rashes or lesions noted LABS Laboratory Results - last 24 hr 12/05/27/17 05/28/17 07:00 07:00 08:00 WBC RBC Hgb Hct MCV MCH MCHC RDW Plt Count 178 MPV Neutrophils % Neutrophils % (Manual) 68.0 Band Neutrophils % 7.0 Lymphocytes % Lymphocytes % (Manual) 14.0 Monocytes % Monocytes % (Manual) 6 Eosinophils % Eosinophils % (Manual) 3.0 Basophils % Myelocytes % (Man) 1 Platelet Estimate Adequate PT with INR 14.7 H INR 1.32 H Sodium Potassium Chloride Carbon Dioxide Anion Gap BUN Creatinine Random Glucose Calcium Phosphorus Magnesium Digoxin 0.7536 L 05/28/17 05/28/17 08:00 08:00 WBC 6.9 D RBC 4.09 Hgb 12.5 Hct 36.5 MCV 89.2 MCH 30.5 MCHC 34.2 RDW 15.1 Plt Count 140 D MPV 9.9 Neutrophils % 72.4 Neutrophils % (Manual) Band Neutrophils % Lymphocytes % 16.5 D Lymphocytes % (Manual) Monocytes % 7.8 Monocytes % (Manual) Eosinophils % 2.8 D Eosinophils % (Manual) Basophils % 0.5 Myelocytes % (Man) Platelet Estimate PT with INR INR Sodium 135 L Potassium 3.8 Chloride 98 Carbon Dioxide 29 H Anion Gap 8 BUN 17 Creatinine 0.8 Random Glucose 152 H Calcium 8.4 Phosphorus 3.6 Magnesium 1.9 Digoxin Microbiology 05/25/17 20:55 Urine - Urine - Catheterized Urine Culture - Final Klebsiella Pneumoniae 05/26/17 05:00 Blood - Peripheral Venous Blood Culture - Preliminary NO GROWTH OBTAINED AFTER 48 HOURS, INCUBATION TO CONTINUE FOR 3 DAYS. 05/26/17 05:00 Blood - Peripheral Venous Blood Culture - Preliminary NO GROWTH OBTAINED AFTER 48 HOURS, INCUBATION TO CONTINUE FOR 3 DAYS. IMAGING chest xray: no acute pathology head ct 05/25: moderate carebral atophy with periventricular changes left wrist: no acute pathology right wrist:no acute pathology cervical spine ct: wedging, no gross fracture HOSPITAL COURSE: 1) MS: Mechanical fall from bed to floor, xrays reviwed no acute pathology, repeat head ct 05/27, no acute pathology. 2) , urinary tract infection, pt is afebrile, no leukocytosis noted, urine culture + kleb pneumonia, treated with ertapnem, transition to ceftin, patient has received keflex in the past, denies any past reaction. Dr Davis (ID) consulted and following 3) ID, herpes zoster, treated for shingles with right eye, right ear distribution, last dose of valacyclovir TID, 05/27, discussed with Dr Padron, patient's private PCP, she has completed 7 days of valacylovir 4) cardiovascular, Systolic heart failure, Pulmonary hypertension, Aortic stenosis s/p TAVR, Echo 11/22/15: EF 20-25%; normal RV; moderate LAE; 1+ MR. patient is euvolemic, continue home dose PO Lasix Atrial fibrillation, rate well-controlled in 80s, continued metoprolol and digoxin, INR supratherapeutic, restarted home dose coumadin 6mg for 3 days and 5mg for 4 days as per cardiology (Dr Katz) Hypertension, BP well-controlled, continue home dose metoprolol, Hyperlipidemia , continued statin, LFT's wnl PLAN - discharge to SNF for short term rehab - continue ceftin for 7 days - continue coumadin 6mg until INR is therepeutic Date of Admission:05/25/17 Date of Discharge: 05/28/17 Minutes to complete discharge: 45 Discharge Summary Reason For Visit: FELL THIS AM INJURING HER WRISTS Current Active Problems Allergy to multiple antibiotics (Acute) Decreased appetite (Acute) Dehydration (Acute) Fall (Acute) Head injury (Acute) History of ESBL E. 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 Referrals: Ori Padron MD [Primary Care Provider] - Disposition: [facility]/HOME HEALTH CARE - Home Medications Comprehensive Discharge Medication List: Ambulatory Orders Digoxin [Lanoxin -] 0.125 mg PO DAILY 05/25/17 Duloxetine HCl 30 mg PO BID 05/25/17 Furosemide [Lasix -] 40 mg PO DAILY 05/25/17 Gabapentin 100 mg PO TID 05/25/17 Metoprolol Tartrate 100 mg PO DAILY 05/25/17 Oxybutynin Chloride [Ditropan -] 5 mg PO DAILY 05/25/17 Rosuvastatin Calcium 10 mg PO DAILY 05/25/17 Tobramycin 0.3% Ophth Soln [Tobrex *Ophthalmic Solution*] 1 - 2 drop DAILY 05/25 Valacyclovir HCl [Valtrex -] 1 gm PO TID 05/25/17 Warfarin Na [Coumadin] 5 mg PO DAILY 05/25/17 This patient is new to me today: No Emergency Visit: Yes ED Registration Date: 05/25/17 Care time: The patient presented to the Emergency Department on the above date and was hospitalized for further evaluation of their emergent condition. Critical Care patient: No - Discharge Referral Referred to [facility] Med P.C.: No
[2017-05-28 14:06] VITALS: BP 120/71; PULSE 66; TEMP 98.6
[2017-05-28] MEDS ORDERED: WARFARIN NA 3 MG TABLET PO ONE (18:00)
== END 2017-05-28 14:40 | disposition home health service (06) | DRG 690 ==
LOC: FER 20:07 → FM/S 23:52
PROVIDERS: ADMIT Internal Medicine; ATTEND Nurse Practitioner Family
DX: N39.0 Urinary tract infection, site not specified (principal); I50.20 Unspecified systolic (congestive) heart failure; B02.8 Zoster with other complications; B96.1 Klebsiella pneumoniae [K. pneumoniae] as the cause of diseases classified elsewhere; S63.599A Other specified sprain of unspecified wrist, initial encounter; I48.91 Unspecified atrial fibrillation; I11.0 Hypertensive heart disease with heart failure; E78.5 Hyperlipidemia, unspecified; I35.0 Nonrheumatic aortic (valve) stenosis; G47.39 Other sleep apnea; K76.0 Fatty (change of) liver, not elsewhere classified; M54.5 Low back pain; M19.90 Unspecified osteoarthritis, unspecified site; E66.8 Other obesity; Z68.33 Body mass index [BMI] 33.0-33.9, adult; W06.XXXA Fall from bed, initial encounter; Y93.89 Activity, other specified; Y92.098 Other place in other non-institutional residence as the place of occurrence of the external cause; Z88.1 Allergy status to other antibiotic agents; Z86.19 Personal history of other infectious and parasitic diseases; Z79.01 Long term (current) use of anticoagulants; Z96.641 Presence of right artificial hip joint; Z96.653 Presence of artificial knee joint, bilateral
CPT/HCPCS: 36415; 70450-TC; 71010-TC; 72125-TC; 73110-TC-LT; 73110-TC-RT; 80048; 80053; 80162; 81003; 81015; 82550; 83735; 84100; 84484; 85025; 85027; 85610; 85730; 87040; 87086; 87186; 93005; 97116-GP; 97162-GP; 99282-25; J1644

== ENCOUNTER 2021-01-01 13:53 | Inpatient (IN) | payer OTHER, BC ==
[2021-01-01 16:32] LABS: HEMATOCRIT 41.4 % (32.4-45.2); HEMOGLOBIN 13.4 GM/dl (10.7-15.3); MCHC 32.4 g/dl (32.0-36.0); MEAN CELL VOLUME 92.8 fl (80-96); MEAN PLT VOLUME 10.3 fl (7.5-11.1); PLATELET COUNT 109 10^3/uL (134-434); RBC 4.47 M/mm3 (3.60-5.2); RDW 14.2 % (11.6-15.6); WHITE BLOOD COUNT 9.1 K/mm3 (4.0-10.8)
[2021-01-01] MEDS ORDERED: FUROSEMIDE 40 MG/4 ML INJECTABLE VIAL IVPUSH ONE (17:21)
[2021-01-01] MEDS ORDERED: FUROSEMIDE 40 MG/4 ML INJECTABLE VIAL ONE (17:50)
[2021-01-01 18:03] LABS: ALBUMIN 3.3 g/dl (3.4-5.0); ALK PHOS 110 U/L (45-117); ANION GAP 12 MMOL/L (8-16); BILIRUBIN,TOTAL 0.8 mg/dl (0.2-1); CALCIUM 8.6 mg/dl (8.5-10); CHLORIDE 95 mmol/L (98-107); CO2 26 mmol/L (21-32); GLUCOSE,RANDOM 290 mg/dl (74-106); SGOT/AST 21 U/L (15-37); SGPT/ALT 24 U/L (13-61); SODIUM 133 mmol/L (136-145); TOT PROT 6.6 g/dl (6.4-8.2)
[2021-01-01 18:05] LABS: PLATELET ESTIMATE SLT DECREASE
[2021-01-01 22:33] VITALS: BMI 38.9
[2021-01-02] MEDS: VITAMINS A AND D TOPICAL OINTMENT 60 GM TUBE TP SCH ×4 (01:00→17:28)
[2021-01-02 04:50] LABS: INR 1.14 (0.83-1.09); PROTHROMBIN TIME (PATIENT) 13.7 SEC (9.7-13.0)
[2021-01-02] MEDS ORDERED: RANITIDINE HCL 150 MG PO PRN (06:52)
[2021-01-02 07:53] LABS: BASO % 1.1 % (0-2.0); EOS % 1.8 % (0-4.5); HEMATOCRIT 37.4 % (32.4-45.2); HEMOGLOBIN 12.5 GM/dl (10.7-15.3); LYMPH % 18.9 % (8-40); MCH 30.6 pg (25.7-33.7); MCHC 33.3 g/dl (32.0-36.0); MEAN CELL VOLUME 91.9 fl (80-96); MEAN PLT VOLUME 9.5 fl (7.5-11.1); MONO % 7.7 % (3.8-10.2); NEUT % 70.5 % (42.8-82.8); PLATELET COUNT 170 10^3/uL (134-434); RBC 4.07 M/mm3 (3.60-5.2); RDW 14.3 % (11.6-15.6); WHITE BLOOD COUNT 6.3 K/mm3 (4.0-10.8)
[2021-01-02 08:27] LABS: ALBUMIN 3.1 g/dl (3.4-5.0); BILIRUBIN,TOTAL 0.9 mg/dl (0.2-1); CALCIUM 8.4 mg/dl (8.5-10); CREATININE 0.9 mg/dl (0.55-1.3); MAGNESIUM 1.8 mg/dL (1.8-2.4); TOT PROT 6.1 g/dl (6.4-8.2)
[2021-01-02] MEDS: FUROSEMIDE 40 MG TABLET (FP) PO SCH ×2 (08:58→13:12)
[2021-01-02] MEDS: metFORMIN HCL 500 MG TABLET (FP) PO SCH ×2 (08:58→17:28)
[2021-01-02] MEDS: METOPROLOL TARTRATE 50 MG TABLET (FP) PO SCH ×2 (09:15→21:41)
[2021-01-02] MEDS: FAMOTIDINE 20 MG TABLET PO PRN (09:27)
[2021-01-02] MEDS: DIGOXIN 0.125 MG TABLET PO SCH (09:27)
[2021-01-02] MEDS: ASCORBIC ACID 500 MG TABLET (FP) PO SCH (09:27)
[2021-01-02] MEDS: DULoxetine HCL 30 MG CAPSULE.DR PO SCH (09:27)
[2021-01-02] MEDS: LISINOPRIL 5 MG TABLET PO SCH (09:28)
[2021-01-02] MEDS: APIXABAN 2.5 MG TABLET PO SCH ×2 (09:28→21:41)
[2021-01-02] MEDS ORDERED: OXYBUTYNIN CHLORIDE 5 MG TABLET PO SCH (10:00)
[2021-01-02] MEDS ORDERED: DULoxetine HCL 30 MG CAPSULE.DR PO SCH (10:00)
[2021-01-02] MEDS ORDERED: FUROSEMIDE 40 MG/4 ML INJECTABLE VIAL IVPUSH SCH (10:00)
[2021-01-02] MEDS ORDERED: FAMOTIDINE 20 MG TABLET PO SCH (10:00)
[2021-01-02] MEDS ORDERED: CYANOCOBALAMIN 1,000 MCG TABLET (FP) PO SCH (10:00)
[2021-01-02] MEDS ORDERED: FOLIC ACID 1 MG TABLET (FP) PO SCH (10:00)
[2021-01-02] MEDS ORDERED: METOPROLOL TARTRATE 50 MG TABLET (FP) PO SCH (10:00)
[2021-01-02 12:44] LABS: INR 1.11 (0.82-1.09); PROTHROMBIN TIME (PATIENT) 12.3 SEC (10.2-13.0)
[2021-01-02] MEDS: GABAPENTIN 100 MG CAPSULE PO SCH ×2 (13:12→21:41)
[2021-01-02] MEDS: ROSUVASTATIN CA 10 MG TABLET (FP) PO SCH (21:41)
[2021-01-02] MEDS ORDERED: DONEPEZIL HCL 10 MG TABLET (FP) PO SCH (22:00)
[2021-01-03] MEDS: VITAMINS A AND D TOPICAL OINTMENT 60 GM TUBE TP SCH ×4 (00:37→17:55)
[2021-01-03] MEDS: FUROSEMIDE 40 MG TABLET (FP) PO SCH ×2 (06:15→15:26)
[2021-01-03] MEDS: GABAPENTIN 100 MG CAPSULE PO SCH ×3 (06:15→22:03)
[2021-01-03] MEDS: metFORMIN HCL 500 MG TABLET (FP) PO SCH ×2 (06:16→15:57)
[2021-01-03] MEDS: METOPROLOL TARTRATE 50 MG TABLET (FP) PO SCH ×2 (09:38→22:03)
[2021-01-03] MEDS: LISINOPRIL 5 MG TABLET PO SCH (09:39)
[2021-01-03] MEDS: APIXABAN 2.5 MG TABLET PO SCH ×2 (09:39→22:03)
[2021-01-03] MEDS: DULoxetine HCL 30 MG CAPSULE.DR PO SCH (09:39)
[2021-01-03] MEDS: FAMOTIDINE 20 MG TABLET PO PRN (09:40)
[2021-01-03] MEDS: ASCORBIC ACID 500 MG TABLET (FP) PO SCH (09:40)
[2021-01-03] MEDS: DIGOXIN 0.125 MG TABLET PO SCH (09:40)
[2021-01-03] MEDS: INSULIN SLIDING SCALE (NOVOLOG) 1 VIAL SQ SCH ×3 (12:22→22:06)
[2021-01-03] MEDS ORDERED: INSULIN SLIDING SCALE (NOVOLOG) 1 VIAL SQ SCH (16:30)
[2021-01-03] MEDS: ROSUVASTATIN CA 10 MG TABLET (FP) PO SCH (22:00)
[2021-01-04] MEDS: VITAMINS A AND D TOPICAL OINTMENT 60 GM TUBE TP SCH ×4 (01:00→18:23)
[2021-01-04] MEDS: metFORMIN HCL 500 MG TABLET (FP) PO SCH ×2 (06:03→17:30)
[2021-01-04] MEDS: FUROSEMIDE 40 MG TABLET (FP) PO SCH ×2 (06:03→13:56)
[2021-01-04] MEDS: GABAPENTIN 100 MG CAPSULE PO SCH ×3 (06:03→22:05)
[2021-01-04] MEDS: INSULIN SLIDING SCALE (NOVOLOG) 1 VIAL SQ SCH ×4 (06:47→22:00)
[2021-01-04] MEDS: METOPROLOL TARTRATE 50 MG TABLET (FP) PO SCH ×2 (09:22→22:05)
[2021-01-04] MEDS: DULoxetine HCL 30 MG CAPSULE.DR PO SCH (09:23)
[2021-01-04] MEDS: DIGOXIN 0.125 MG TABLET PO SCH (09:24)
[2021-01-04] MEDS: APIXABAN 2.5 MG TABLET PO SCH ×2 (09:24→22:05)
[2021-01-04] MEDS: ASCORBIC ACID 500 MG TABLET (FP) PO SCH (09:25)
[2021-01-04] MEDS: LISINOPRIL 5 MG TABLET PO SCH (09:25)
[2021-01-04] MEDS: ROSUVASTATIN CA 10 MG TABLET (FP) PO SCH (22:05)
[2021-01-05] MEDS: VITAMINS A AND D TOPICAL OINTMENT 60 GM TUBE TP SCH ×2 (00:12→05:44)
[2021-01-05] MEDS: GABAPENTIN 100 MG CAPSULE PO SCH (05:44)
[2021-01-05] MEDS: FUROSEMIDE 40 MG TABLET (FP) PO SCH (05:44)
[2021-01-05 05:55] VITALS: BP 134/70; TEMP 97.7
[2021-01-05] MEDS: metFORMIN HCL 500 MG TABLET (FP) PO SCH (06:19)
[2021-01-05] MEDS: INSULIN SLIDING SCALE (NOVOLOG) 1 VIAL SQ SCH (07:15)
[2021-01-05] MEDS: DIGOXIN 0.125 MG TABLET PO SCH (10:04)
[2021-01-05] MEDS: APIXABAN 2.5 MG TABLET PO SCH (10:04)
[2021-01-05] MEDS: LISINOPRIL 5 MG TABLET PO SCH (10:05)
[2021-01-05] MEDS: DULoxetine HCL 30 MG CAPSULE.DR PO SCH (10:05)
[2021-01-05] MEDS: ASCORBIC ACID 500 MG TABLET (FP) PO SCH (10:05)
[2021-01-05] MEDS: METOPROLOL TARTRATE 50 MG TABLET (FP) PO SCH (10:05)
[2021-01-05 10:06] VITALS: PULSE 90
== END 2021-01-05 12:00 | DRG 312 ==
LOC: FER 13:53 → FM/S 21:32
PROVIDERS: ADMIT Internal Medicine; ATTEND Nurse Practitioner Acute Care
DX: R55 Syncope and collapse (principal); I50.42 Chronic combined systolic (congestive) and diastolic (congestive) heart failure; I48.91 Unspecified atrial fibrillation; I27.20 Pulmonary hypertension, unspecified; E78.5 Hyperlipidemia, unspecified; F03.90 Unspecified dementia, unspecified severity, without behavioral disturbance, psychotic disturbance, mood disturbance, and anxiety; G47.30 Sleep apnea, unspecified; M54.5 Low back pain; M51.36 Other intervertebral disc degeneration, lumbar region; I44.7 Left bundle-branch block, unspecified; E11.9 Type 2 diabetes mellitus without complications; I99.8 Other disorder of circulatory system; I08.3 Combined rheumatic disorders of mitral, aortic and tricuspid valves; E66.9 Obesity, unspecified; Z68.37 Body mass index [BMI] 37.0-37.9, adult; F32.9 Major depressive disorder, single episode, unspecified; I11.0 Hypertensive heart disease with heart failure; W18.39XA Other fall on same level, initial encounter; Y92.89 Other specified places as the place of occurrence of the external cause; Y99.8 Other external cause status
CPT/HCPCS: 36415; 70450-TC; 71045-TC-FY; 72125-TC; 73523-TC-FY; 73560-TC-RT-FY; 80053; 80061; 80162; 82962; 83735; 83880; 84443; 84484; 85025; 85610; 93005; 93306-TC; 93880-TC; 97116-GP; 97163-GP; 99285-25; C9803; U0003; U0005